=== PATIENT | male | born 1980 | race African-American/Black ===

== ENCOUNTER 2022-12-02 14:57 | Emergency (ER) | payer MEDICAID ==
[~2022-12-02] VITALS: Ht 170.2 cm; Wt 77.1 kg
--- NOTE | 2022-12-02 15:00 | NUR ---
Pt brought by self, A&Ox4, pt presents to ER with cough, congestion, skin pink and warm, cap refill <3, VSS, will cont to monitor.
[2022-12-02 15:13] VITALS: BP_SYST 132
--- NOTE | 2022-12-02 15:20 | NUR ---
Dr Malone evaluating patient at bedside
[2022-12-02] MEDS ORDERED: IBUPROFEN 800 MG TABLET PO ONE (17:30)
[2022-12-02 18:33] VITALS: BP_SYST 132
--- NOTE | 2022-12-02 18:57 | NUR ---
Patient given written and verbal discharge instructions and verbalizes understanding. ER MD discussed with patient the results and treatment provided. Patient in stable condition. ID arm band removed. No Rx given. Patient educated on pain management and to follow up with PMD. Pain Scale 2/10 Opportunity for questions provided and answered. Medication side effect fact sheet provided.
== END 2022-12-02 18:57 | disposition home or self-care (01) ==
LOC: SED 14:57
DX: J06.9 Acute upper respiratory infection, unspecified (principal); R05.9 Cough, unspecified; R09.81 Nasal congestion; M79.10 Myalgia, unspecified site; Z79.899 Other long term (current) drug therapy; Z20.822 Contact with and (suspected) exposure to COVID-19
CPT/HCPCS: 36415; 99283

== ENCOUNTER 2023-06-18 10:42 | Emergency (ER) | payer MEDICAID ==
[~2023-06-18] VITALS: Ht 170.2 cm; Wt 72.6 kg
[2023-06-18 10:45] VITALS: BP_SYST 120; PULSE 52; RESP 16; TEMP 97.3; O2SAT 98
[2023-06-18 11:50] LABS: BILIRUBIN,URINE NEGATIVE (NEGATIVE); BLOOD, URINE NEGATIVE (NEGATIVE); CLARITY/URINE CLEAR (CLEAR); COLOR,URINE YELLOW (YELLOW); GLUCOSE,URINE NEGATIVE (NEGATIVE); KETONES,URINE NEGATIVE (NEGATIVE); LEUKOCYTE ESTERASE ,URINE NEGATIVE (NEGATIVE); NITRITE, URINE NEGATIVE (NEGATIVE); PROTEIN URINE NEGATIVE (NEGATIVE); UROBILINOGEN,URINE 0.2 (0.2-1.0)
[2023-06-18 12:09] LABS: BASOPHILS % (AUTO) 0.8 % (0.0-2.0); EOSINOPHILS # (AUTO) 0.2 K/uL (0.0-0.4); EOSINOPHILS % (AUTO) 3.5 % (0.0-4.0); HEMATOCRIT 40.5 % (36-54); HEMOGLOBIN 12.9 g/dL (14.0-18.0); LYMPHOCYTES # (AUTO) 1.1 K/uL (1.0-5.5); LYMPHOCYTES % (AUTO) 19.6 % (20.5-51.5); MEAN CORPUSCULAR HEMOGLOBIN 28 pg (27-31); MEAN CORPUSCULAR HGB CONC 32 % (32-36); MEAN CORPUSCULAR VOLUME 86 fL (79.0-98.0); MONOCYTES # (AUTO) 0.3 K/uL (0.0-1.0); MONOCYTES % (AUTO) 5.9 % (1.7-9.3); NEUTROPHILS # (AUTO) 4.1 K/uL (1.8-7.7); NEUTROPHILS % (AUTO) 70.2 % (40.0-70.0); PLATELET COUNT (AUTO) 232 K/uL (130-430); RED CELL DISTRIBUTION WIDTH 15.1 % (9.0-15.0); WHITE BLOOD COUNT (AUTO) 5.8 K/uL (4.8-10.8)
[2023-06-18 12:26] VITALS: BP_SYST 120; PULSE 52; RESP 16; TEMP 97.3; O2SAT 98
[2023-06-18 12:31] LABS: ANION GAP 4 (5-15); CALCIUM 8.9 mg/dL (8.4-11.0); CHLORIDE 103 mmol/L (98-107); CREATININE 0.83 mg/dL (0.55-1.30); GFR AFRICAN AMERICAN 131 mL/min (>90); GLUCOSE 84 mg/dL (74-106); UREA NITROGEN, BLOOD 10 mg/dL (8-21)
[2023-06-18 12:35] LABS: BARBITURATE, URINE NEGATIVE (NEG <=200); BENZODIAZEPINE, URINE NEGATIVE (NEG <=150); CANNABINOID, URINE POSITIVE (NEG <=50); COCAINE, URINE NEGATIVE (NEG <=150); METHAMPHETAMINES SCREEN,URINE NEGATIVE (NEG <=500); OPIATE, URINE NEGATIVE (NEG <=100); PHENCYCLIDINE SCREEN,URINE NEGATIVE (NEG <=25); URINE AMPHETAMINE NEGATIVE (NEG <=500); URINE METHADONE NEGATIVE (NEG <=200); URINE OXYCODONE SCREEN NEGATIVE (NEG <=100); URINE PROPOXYPHENE SCREEN NEGATIVE (NEG <=300)
[2023-06-18 12:36] LABS: ALANINE AMINOTRANSFERASE 16 U/L (12-78); ALBUMIN 3.8 g/dL (3.4-4.8); ASPARTATE AMINOTRANSFERASE 14 U/L (10-37); LIPASE 46 U/L (73-393); TOTAL BILIRUBIN 0.5 mg/dL (0.0-1.0)
[2023-06-18 12:36] LABS: UR TRICYCLIC ANTIDEPRESSANTS NEGATIVE (NEG <=300)
[2023-06-18 12:40] LABS: ALCOHOL, BLOOD < 3 mg/dL (<10)
[2023-06-18] MEDS ORDERED: IBUP-1969 PO (14:35)
== END 2023-06-18 14:40 | disposition home or self-care (01) ==
LOC: SED 10:42
DX: R10.31 Right lower quadrant pain (principal); G89.29 Other chronic pain; M25.551 Pain in right hip; Z79.899 Other long term (current) drug therapy
CPT/HCPCS: 99284; 80307; 80053; 83690; 85025; 36415; 73502; 81003; 72170; G0482

== ENCOUNTER 2024-04-14 15:26 | Emergency (ER) | payer MEDICAID ==
[~2024-04-14] VITALS: Ht 170.2 cm; Wt 77.1 kg
[2024-04-14 15:26] VITALS: BP_SYST 122; PULSE 87; RESP 19; TEMP 98.1; O2SAT 97
[~2024-04-14 15:26] MED LIST: IBUP-1969 PO
[2024-04-14] MEDS ORDERED: NABU-140 PO (15:58)
== END 2024-04-14 16:06 | disposition home or self-care (01) ==
LOC: SED 15:26
DX: G89.29 Other chronic pain (principal); M79.671 Pain in right foot; M79.672 Pain in left foot
CPT/HCPCS: 99283